=== PATIENT | female | born 1960 | race Caucasian/White ===

== ENCOUNTER → 2019-09-20 | Emergency (ER) | payer OTHER ==
[~2019-09-20] VITALS: Ht 162.6 cm; Wt 79.4 kg
[~2019-09-20] MED LIST: PENICILLIN V P500 MG; TRAMADOL HCL50 MG; ZOLOFT25 MG; ZOLOFT50 MG
== END | disposition left against medical advice (07) ==
LOC: ER 14:11
DX: Z53.20 Procedure and treatment not carried out because of patient's decision for unspecified reasons (principal)

== ENCOUNTER 2020-05-17 13:33 | Emergency (ER) | payer OTHER ==
[~2020-05-17] VITALS: Ht 165.1 cm; Wt 68.0 kg
== END 2020-05-17 15:25 | disposition home or self-care (01) ==
LOC: ER 13:33
DX: M62.838 Other muscle spasm (principal)

== ENCOUNTER 2021-02-21 15:46 | Emergency (ER) | payer OTHER ==
[~2021-02-21] VITALS: Ht 162.6 cm; Wt 63.5 kg
[2021-02-21] MEDS ORDERED: MACROBID 100 M100 MG PO (19:28)
== END 2021-02-21 19:36 | disposition home or self-care (01) ==
LOC: ER 15:46
DX: R20.2 Paresthesia of skin (principal)